=== PATIENT | female | born 2000 | race African-American/Black ===

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

== ENCOUNTER 2019-01-04 09:35 | Day surgery (SDC) | payer BC, OTHER ==
[2019-01-04 09:59] VITALS: BMI 38.7
[2019-01-04] MEDS ORDERED: Iron Sucrose Complex 500 MG in Sodium Chloride 0.9% 250 ML 250 ML IVPB SCH (10:30)
[2019-01-04] MEDS ORDERED: Acetaminophen 500 MG TAB PO SCH (11:00)
[2019-01-04] MEDS ORDERED: Lactated Ringer's 1,000 ML IV SCH (11:45)
== END 2019-01-04 16:00 | disposition home or self-care (01) ==
LOC: L&D/OP 09:35
PROVIDERS: ATTEND Advanced Practice Midwife
DX: O99.019 Anemia complicating pregnancy, unspecified trimester (principal)
CPT/HCPCS: 96361; 96365; 96366; 99283; J1756; J7050

== ENCOUNTER 2019-01-26 15:34 | Day surgery (SDC) | payer BC, OTHER ==
[2019-01-26 16:00] VITALS: BP 126/73; TEMP 98.8; BMI 39.4
[2019-01-26] MEDS ORDERED: hydrALAZINE 20 MG/ML VIAL SLOW IVP PRN (16:37)
--- NOTE | 2019-01-27 08:50 | PRG ---
DATE OF SERVICE: 01/26/2019 PRIMARY OB: Certified nurse head insulation board saw operator, Huong Randhawa. CHIEF COMPLAINT: Abdominal pains. HISTORY OF PRESENT ILLNESS: The patient is a 18-year-old G1, P0 female with an intrauterine at 36 weeks and 6 days, who is presenting to Labor and Delivery with abdominal pain that she has been feeling about every 15 minutes. These uterine contractions have also not been very regular or consistent. The patient reports that she is just tired of being and wanted to see if she was in labor. The patient denies any vaginal bleeding. She is having a mucousy discharge and some diarrhea last couple of days. The patient denies any recent illnesses, fever, cough, headache, chest pain, shortness of breath, significant nausea, vomiting, constipation, any new rashes, hip problems, knee problems, muscle weakness, or burning with urination. Tocometer showing some irritability with contractions about every 2 to 4 minutes. PAST MEDICAL HISTORY: Negative. PAST SURGICAL HISTORY: Tonsillectomy. ALLERGIES: NO KNOWN DRUG ALLERGIES. MEDICATIONS: vitamins. OB LABORATORY DATA: Unavailable at the time of dictation. SOCIAL HISTORY: Denies drug, alcohol, or tobacco use. REVIEW OF SYSTEMS: Per HPI. PHYSICAL EXAMINATION: VITAL SIGNS: Blood pressure 126/73, heart rate of 88, respiratory rate of 18, and temperature 98.8. GENERAL: She appears to be in no acute distress. She is alert and oriented, cooperative, and pleasant to interact with. HEENT: Head is normocephalic and atraumatic. LUNGS: Clear to auscultation bilaterally. HEART: Has a regular rate and rhythm. ABDOMEN: Gravid, soft, nontender. EXTREMITIES: Nontender with 1+ edema, symmetrical and bilateral. CERVICAL: Per nursing staff is closed, thick and high. heart tracing shows a baseline in the 130s with moderate long-term variability, positive 15 x 15 accelerations, no decelerations. Tocometer showing some irritability with contractions about every 2 to 4 minutes. The patient reports the contractions are lasting about 20 to 30 seconds at a time. ASSESSMENT AND PLAN: The patient is a 18-year-old G1, P0 female with an intrauterine at 36 weeks and 6 days, having contractions, but no evidence of labor at this time. Fetus has a category 1 tracing and reactive NST. The patient has been given reassurance and discharged home. She has an appointment with Ms. Huong Randhawa on Thursday, which we have encouraged that she keep. Job ID: [id number]
== END 2019-01-26 16:37 | disposition home or self-care (01) ==
LOC: L&D/OP 15:34
PROVIDERS: ATTEND Obstetrics & Gynecology
DX: O47.03 False labor before 37 completed weeks of gestation, third trimester (principal); Z3A.36 36 weeks gestation of pregnancy
CPT/HCPCS: 99282

== ENCOUNTER 2019-02-05 16:21 | Day surgery (SDC) | payer BC, OTHER ==
[2019-02-05 16:49] VITALS: BP 129/77; TEMP 98.4; BMI 37.8
[2019-02-05] MEDS ORDERED: hydrALAZINE 20 MG/ML VIAL SLOW IVP PRN (16:58)
--- NOTE | 2019-02-05 17:21 | PDOC.FPROB ---
FMR OB H&P: HPI - History of Present Illness Chief Complaint: contractions Indentification: 18 yo G1 @ 38.2 History of Present Illness: 18 yo @ 38.3 presents for painful contractions since yesterday. Pt reports contractions are approx 10-15 minutes apart and are cramping in nature. No fever , chills, NVDC. Denies LOF, bleeding, discharge and reports pos movement. FMR OB H&P: Current - OB Labs Blood type: O RH: positive Antibody Screen: negative HIV: negative RPR: negative HepBsAg: negative Rubella: immune Quad screen: negative Urine drug screen: negative Gonorrhea: negative Chlamydia: negative Pap Smear: TRUCK LOADER 1 hour gtt: 87 GBS: unknown Platelets: 262 FMR OB H&P: History - OB History OB History: Anemia of FMR OB H&P: Medications - Current Home Medications: Medication Instructions Recorded Confirmed Type No122/Iron/Folic Acid 1 tablet PO Q24HR 12/10/18 01/26/19 History [ Multi Tablet] Allergies/Adverse Reactions: Allergies Allergy/AdvReac Type Severity Reaction Status Date / Time No Known Allergies Allergy Verified 01/26/19 16:01 FMR OB H&P: ROS - Review of Systems General: denies: fever/chills, night sweats Eyes: denies: vision changes ENT: denies: nasal congestion Cardiovascular: denies: chest pain, edema Respiratory: denies: cough, shortness of breath Gastrointestinal: denies: abdominal pain, cramping, nausea, vomiting, constipation Genitourinary (Female): reports: contractions. denies: vaginal discharge, vaginal pain, vaginal bleeding, vaginal pressure Neurologic: denies: numbness, syncope, weakness FMR OB H&P: Vital Signs - Maternal Vital signs: Vital Signs - First Documented Temp Pulse Resp BP 98.4 F 100 22 H 129/77 02/05/19 16:46 02/05/19 16:46 02/05/19 16:46 02/05/19 16:46 - Heart Tones Baseline: 130 Variability: moderate Acceleration: present Deceleration: absent Category: category 1 [place] contractions every: None FMR OB H&P: Physical Exam - Physical Exam General: NAD, awake, alert and oriented HEENT: normocephalic and atraumatic, PERRLA, EOMI, MMM, grossly normal vision, grossly normal hearing Neck: trachea midline Heart: RRR, normal S1/S2, no murmurs/rubs/gallops, no edema General: CTAB, no respiratory distress, good air movement, no rales/rhonchi, no wheezing, no retractions Abdomen: soft, gravid, non-tender, bowel sound present Musculoskeletal: FROM in all four extremities Neurological: no focal deficit Skin: good tugor - Pelvic Exam SVE: 1/T/H FMR OB H&P: A/P Disposition: 18 yo G1 @ 38.3 weeks 1) TIUP latent labor - cervix 1 thick and high - no contractions on monitor - fhts baseline 130 pos accels no late or variable dels, reactive strip - will dc to home with return/labor precautions - tylenol prn for pain Discussion: Date/Time: 02/05/191718 This H&P was discussed with Dr. Alfaro who agrees with the above documentation and plan. Addendum - Attending - Attending Attestation Date/Time: 02/05/191947 I personally evaluated the patient and discussed the management with Dr. Monroy. I agree with the History, Examination, Assessment and Plan documented above.
== END 2019-02-05 17:59 | disposition home or self-care (01) ==
LOC: L&D/OP 16:21
PROVIDERS: ATTEND Advanced Practice Midwife
DX: O09.93 Supervision of high risk pregnancy, unspecified, third trimester (principal); O99.013 Anemia complicating pregnancy, third trimester; Z3A.38 38 weeks gestation of pregnancy
CPT/HCPCS: 99282

== ENCOUNTER 2019-02-13 16:45 | Day surgery (SDC) | payer BC, OTHER ==
[2019-02-13 17:43] VITALS: BMI 42.0
[2019-02-13 17:44] VITALS: TEMP 98.9
--- NOTE | 2019-02-13 18:17 | PDOC.LDHP ---
Labor and Delivery H&P Chief complaint: contractions, decreased movement HPI: 18 y/o G1 at 39w3d, patient of Cece Randhawa, presents with decreased movement today and ctx on and off all day. Ctx up to q 3 mins. Denies VB, LOF , or other complaints. ROS neg for HEENT, CV, pulm, GI, , neuro, psych, skin, musculoskeletal, or constitutional symptoms other than mentioned above. OB History Details: First Current complications: none Past Medical History: None Current medications: pre- vitamins Previous surgical history: none Allergies/Adverse Reactions: Allergies Allergy/AdvReac Type Severity Reaction Status Date / Time No Known Allergies Allergy Verified 01/26/19 16:01 - Physical Exam Vital signs reviewed and normal: yes General: NAD, resting Lungs: nonlabored breathing Abdomen: gravid Extremeties: no edema FHT: category 1 (120s, mod variability, + accels, no decels) [place] contractions every: irregular - Vaginal Exam cm dilated: 1 Effacement: 0% Station: -3 - Assessment 18 y/o G1 at 39w3d with no e/o active labor. status reassuring with reactive NST. - Plan -: D/c home with precautions. Advised to keep appointment scheduled for Thursday.
== END 2019-02-13 18:30 | disposition home or self-care (01) ==
LOC: L&D/OP 16:45
PROVIDERS: ATTEND Obstetrics & Gynecology
DX: O36.8130 Decreased fetal movements, third trimester, not applicable or unspecified (principal); O47.1 False labor at or after 37 completed weeks of gestation; Z3A.39 39 weeks gestation of pregnancy
CPT/HCPCS: 99283

== ENCOUNTER 2019-02-14 22:57 | Day surgery (SDC) | payer BC, OTHER ==
[2019-02-14 23:35] VITALS: BP 128/77; TEMP 98.7; BMI 38.5
[2019-02-14] MEDS ORDERED: hydrALAZINE 20 MG/ML VIAL SLOW IVP PRN (23:57)
[2019-02-15 00:22] LABS: Amnisure Test No Membranes Rupture (No Rupture)
[2019-02-15 00:23] LABS: Amnisure Internal Control QC ACCEPTABLE (ACCEPTABLE)
--- NOTE | 2019-02-15 02:32 | SS ---
DATE OF ADMISSION: 02/14/2019 DATE OF DISCHARGE: 02/15/2019 REGULAR PROVIDER: Huong Randhawa, certified nurse-home furnishings sales representative. EVALUATING PHYSICIAN: King Alfaro MD CHIEF COMPLAINT: Contractions at home. HISTORY OF PRESENT ILLNESS: Ms. Alexei Millard is a 18-year-old black, G1, P0 with an estimated date of confinement of 02/17/2019, who presents complaining of regular uterine contractions since 8 o'clock tonight. She states she might be leaking, but she is not sure. She denies vaginal bleeding or decreased movement. The patient was here approximately 24 hours ago with similar complaints and was found to be 1 cm at that time. Her care has been with Huong Randhawa without complications. PAST MEDICAL HISTORY: None. PAST SURGICAL HISTORY: Tonsillectomy. CURRENT MEDICATION: vitamins. ALLERGIES: NO KNOWN ALLERGIES. SOCIAL HISTORY: Denies tobacco, alcohol, or drug use. FAMILY HISTORY: Unremarkable. REVIEW OF SYSTEMS: Denies nausea, vomiting, fever, chills, vaginal bleeding, or decreased movement. PHYSICAL EXAMINATION: VITAL SIGNS: In triage, her vital signs are stable. She is afebrile. GENERAL: She is in no acute distress. ABDOMEN: Soft, nontender, and gravid. PELVIC: Exam by the labor nurse shows her cervix to be 1 cm, minimally effaced with the vertex high. heart rate tracing is stable. There are spontaneous accelerations. Uterine contractions every 3 to 5 minutes, mild to palpation, are noted. AmniSure was obtained and it returns negative. ASSESSMENT: 1. 39-week intrauterine . 2. Prodromal labor, no evidence of active labor at this time. PLAN: The patient was offered to stay on [place] to go home with and she has declined this. Labor precautions were reviewed with her and her mother in detail. She states she has a followup appointment with Huong Randhawa this week. She was sent home in good condition. Job ID: [id number]
== END 2019-02-15 01:03 | disposition home or self-care (01) ==
LOC: L&D/OP 22:57
PROVIDERS: ATTEND Student in an Organized Health Care Education/Training Program
DX: O47.1 False labor at or after 37 completed weeks of gestation (principal); Z3A.39 39 weeks gestation of pregnancy
CPT/HCPCS: 84112

== ENCOUNTER 2019-03-30 09:46 | Outpatient (CLI) | payer BC, OTHER ==
--- NOTE | 2019-03-30 12:07 | ULT ---
LEFT BREAST DIAGNOSTIC ULTRASOUND: Date: 03/30/19 INDICATION: Palpable abnormality in the left breast. COMPARISON: Prior left breast ultrasound dated 01/21/16. FINDINGS: Within the palpable region of interest, there is a 2.2 x 2.0 x 1.4 cm lobulated solid mass in the lef t breast 2 o'clock position 7 cm from the nipple. This corresponds to the mass seen on the prior exam ination in 2016. The lesion measured 2.0 x 1.2 x 1.7 cm on the prior examination. IMPRESSION: Circumscribed hypoechoic mass slightly intervally enlarged from the comparison in 2016. The patient r eportedly has recently undergone and . The patient has also recently been placed on bi rth control medication. Would recommended a follow-up examination in 6 weeks to document stability of fibroadenoma. The patient was counseled on the findings prior to leaving [facility]. POS: [facility]
== END 2019-03-30 09:47 | disposition home or self-care (01) ==
LOC: BICULT 09:46
PROVIDERS: ATTEND Obstetrics & Gynecology
DX: N63.20 Unspecified lump in the left breast, unspecified quadrant (principal)

== ENCOUNTER 2019-04-19 09:59 | Outpatient (CLI) | payer BC, OTHER ==
[2019-04-19 12:19] LABS: BHCG - Serum Negative (NEGATIVE); Pregs Control Background? CLEAR/WHITE (CLR/WHITE); Pregs Control Bar Appear? YES (CONTROL BAR)
== END 2019-04-19 10:00 | disposition home or self-care (01) ==
LOC: LABBT 09:59
PROVIDERS: ATTEND Surgery
DX: Z01.812 Encounter for preprocedural laboratory examination (principal); N63.20 Unspecified lump in the left breast, unspecified quadrant
CPT/HCPCS: 84703

== ENCOUNTER 2019-04-22 08:03 | Day surgery (SDC) | payer BC, OTHER ==
[2019-04-19 10:15] VITALS: BMI 37.0
[2019-04-22] MEDS ORDERED: Lidocaine 2% PF 5 ML VIAL ONE (10:31)
[2019-04-22] MEDS ORDERED: Bupivacaine HCl 0.5%/Epinephrine 1:200,000/PF 30 ml Vial ONE (10:31)
[2019-04-22] MEDS ORDERED: Fentanyl 100 MCG/2 ML VIAL ONE (10:43)
[2019-04-22] MEDS ORDERED: Scopolamine 1.5 mg/72 hour Patch ONE (10:56)
[2019-04-22] MEDS ORDERED: PROPOFOL 200 MG/20 ML VIAL ONE (11:30)
[2019-04-22] MEDS ORDERED: Dexamethasone 20 MG/5 ML VIAL ONE (11:30)
[2019-04-22] MEDS ORDERED: Ketorolac Tromethamine 30 MG/ML VIAL ONE (11:30)
[2019-04-22] MEDS ORDERED: Ondansetron PF 4 MG/2 ML Vial ONE (11:30)
[2019-04-22] MEDS ORDERED: Meperidine HCl/PF 25 MG/ML VIAL ONE (11:38)
--- NOTE | 2019-04-29 14:38 | PDOC.OP ---
Operative Note - Operative Note Operative Note: PROCEDURE: Excision of left breast mass SURGEON: Elysia Riley M.D. 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 Patient had decided to undergo excision last year since it had enlarged slightly but she ended up canceling her surgery. She then became and had a baby. She is not nursing but noticed that the mass was growing larger so she returned to have this addressed. It still looks benign on ultrasound it has grown somewhat. Excision was recommended for diagnostic and symptomatic purposes. PROCEDURE IN DETAIL: After informed consent was obtained and appropriate preoperative and buttocks were administered the patient was taken to the operating room she was placed in supine position and anesthesia was administered. She was prepped and draped in standard sterile fashion and local anesthesia infused the skin and subcutaneous tissues overlying the palpable lateral breast mass. A skin incision was made and dissection carried down to the palpable mass which was excised with a rim of normal breast tissue. This was marked for orientation with a long lateral, short superior, and loop superficial suture. The wound was irrigated and hemostasis obtained using Bovie electrocautery. Additional local anesthesia was infused for postoperative pain control. The wound was again irrigated and hemostasis verified. The subcutaneous tissues were reapproximated with 3-0 Monocryl suture and the skin closed with 4-0 subcuticular Monocryl suture. Dermabond dressings were placed and once this was dry a compression dressing was placed and secured with tape. The patient was extubated and taken to recovery in good condition. Estimated blood loss is minimal. There were no complications. Specimen is left breast mass
== END 2019-04-22 13:25 | disposition home or self-care (01) ==
LOC: SDC 08:03
PROVIDERS: ATTEND Surgery
PROC: 0HBU0ZX Excision of Left Breast, Open Approach, Diagnostic (ICD-10-PCS; principal; 2019-04-22)
DX: D24.2 Benign neoplasm of left breast (principal)
CPT/HCPCS: 88305; J0131; J0670; J1100; J1885; J2001; J2175; J2405; J2704; J3010

== ENCOUNTER 2019-11-26 14:46 | Emergency (ER) | payer BC, OTHER ==
[2019-11-27 11:49] LABS: SARS-CoV-2 MS2 Positive; SARS-CoV-2 N Gene Positive; SARS-CoV-2 S Gene Positive; SARS-CoV-2 orf1ab Positive
== END 2019-11-26 15:56 | disposition home or self-care (01) ==
LOC: ERS 14:46
DX: U07.1 COVID-19 (principal)
CPT/HCPCS: 87635; 99283; U0003

== ENCOUNTER 2019-12-23 16:27 | Emergency (ER) | payer BC, OTHER ==
[2019-12-23 16:57] LABS: #Basophils 0.1 thou/uL (0.0-0.2); #Eosinphils 0.3 thou/uL (0.0-0.7); #Lymphocytes 2.8 thou/uL (1.20-3.40); #Monocytes 0.5 thou/uL (0.11-0.59); #Neutrophils 6.6 thou/uL (1.40-6.50); %Basophils 0.5 % (0.0-1.0); %Eosinophils 2.6 % (0.0-10.0); %Lymphocytes 27.2 % (28.0-48.0); %Monocytes 4.5 % (0.0-4.0); %Neutrophils 65.2 % (31.0-61.0); Hemoglobin 11.6 g/dL (12.0-16.0); Mean Corpuscular HGB CONC 31.2 g/dL (32.0-36.0); Mean Corpuscular Hemoglobin 23.1 pg (25.0-35.0); Mean Corpuscular Volume 74.1 fL (78.0-98.0); Mean Platelet Volume 10.3 fL (7.4-10.4); Platelet Count 304 thou/uL (130-400); RBC Distribution Width 15.9 % (11.5-14.5); Red Blood Cell (RBC) Count 5.04 mill/uL (4.00-5.20); White Blood Cell (WBC) Count 10.1 thou/uL (4.8-10.8)
[2019-12-23 17:25] LABS: ALT (SGPT) 15 U/L (8-55); AST (SGOT) 14 U/L (5-34); Albumin 4.2 g/dL (3.5-5.0); Alkaline Phosphatase 111 U/L (40-100); Anion Gap 11 mmol/L (10-20); BUN (Urea Nitrogen) 6 mg/dL (7.0-18.7); Bilirubin, Total 0.3 mg/dL (0.2-1.2); Calc. Creatinine Clearance 0 mL/min (70-130); Calcium 9.5 mg/dL (7.8-10.44); Carbon Dioxide 26 mmol/L (22-29); Chloride 106 mmol/L (98-107); Estimated GFR-MDRD Greater than 90; Globulin 3.2 g/dL (2.4-3.5); Glucose 102 mg/dL (70-105); Lipase 11 U/L (8-78); Protein, Total 7.4 g/dL (6.0-8.3); Sodium 139 mmol/L (136-145)
== END 2019-12-23 17:33 | disposition left against medical advice (07) ==
LOC: ERS 16:27
DX: Z53.21 Procedure and treatment not carried out due to patient leaving prior to being seen by health care provider (principal)
CPT/HCPCS: 36415; 80053; 83690; 85025

== ENCOUNTER 2020-01-10 10:56 | Emergency (ER) | payer BC, OTHER ==
[2020-01-11 13:13] LABS: SARS-CoV-2 MS2 Positive; SARS-CoV-2 N Gene Negative; SARS-CoV-2 S Gene Negative; SARS-CoV-2 by NAA Not Detected (NotDetected); SARS-CoV-2 orf1ab Negative
== END 2020-01-10 11:16 | disposition home or self-care (01) ==
LOC: ERS 10:56
DX: R09.81 Nasal congestion (principal); R53.83 Other fatigue; R51 Headache; R11.0 Nausea; Z20.828 Contact with and (suspected) exposure to other viral communicable diseases; F32.9 Major depressive disorder, single episode, unspecified
CPT/HCPCS: 87635; 99283; U0003

== ENCOUNTER 2020-02-05 14:33 | Emergency (ER) | payer BC, OTHER ==
[2020-02-05] MEDS ORDERED: Ketorolac Tromethamine 30 MG/ML VIAL ONE (15:32)
--- NOTE | 2020-02-05 15:46 | RAD ---
Exam:4 views left knee HISTORY: Pain and swelling. COMPARISON: None FINDINGS: Preserved joint spaces. No joint effusion. No fracture or malalignment. IMPRESSION: No radiographic abnormality.
== END 2020-02-05 16:26 | disposition home or self-care (01) ==
LOC: ERS 14:33
DX: M25.562 Pain in left knee (principal); F32.9 Major depressive disorder, single episode, unspecified
CPT/HCPCS: 96372; J1885

== ENCOUNTER 2020-02-14 12:32 | Emergency (ER) | payer BC, OTHER | END 2020-02-14 13:50 | disposition home or self-care (01) | LOC: ERS 12:32 | DX: M25.562 Pain in left knee (principal); F32.9 Major depressive disorder, single episode, unspecified | CPT/HCPCS: 99281 ==

== ENCOUNTER 2020-02-15 07:34 | Emergency (ER) | payer BC, OTHER | END 2020-02-15 08:17 | disposition home or self-care (01) | LOC: ERS 07:34 | DX: M25.462 Effusion, left knee (principal) | CPT/HCPCS: 99281 ==

== ENCOUNTER 2020-02-22 10:18 | Emergency (ER) | payer BC, OTHER | END 2020-02-22 11:15 | disposition home or self-care (01) | LOC: ERS 10:18 | DX: M25.562 Pain in left knee (principal); R79.89 Other specified abnormal findings of blood chemistry; F32.9 Major depressive disorder, single episode, unspecified | CPT/HCPCS: 99283 ==

== ENCOUNTER 2020-02-29 07:48 | Emergency (ER) | payer BC, OTHER ==
[2020-02-29] MEDS ORDERED: Ondansetron ODT 4 MG TAB ONE (08:07)
[2020-02-29 16:54] LABS: SARS-CoV-2 MS2 Positive; SARS-CoV-2 N Gene Negative; SARS-CoV-2 S Gene Negative; SARS-CoV-2 by NAA Not Detected (NotDetected); SARS-CoV-2 orf1ab Negative
== END 2020-02-29 09:12 | disposition home or self-care (01) ==
LOC: ERS 07:48
DX: R11.2 Nausea with vomiting, unspecified (principal); Z20.828 Contact with and (suspected) exposure to other viral communicable diseases
CPT/HCPCS: 87635; 99284; Q0162; U0003

== ENCOUNTER 2022-08-11 10:43 | Emergency (ER) | payer OTHER ==
[~2022-08-11 10:43] MED LIST: Iopamidol-370 76% 500 ML 1 ML ONE
[2022-08-11 13:09] LABS: #Basophils 0.1 thou/uL (0.0-0.2); #Eosinphils 0.1 thou/uL (0.0-0.7); #Lymphocytes 2.3 thou/uL (1.20-3.40); #Monocytes 0.3 thou/uL (0.11-0.59); #Neutrophils 2.9 thou/uL (1.40-6.50); %Basophils 1.1 % (0.0-1.0); %Eosinophils 1.5 % (0.0-10.0); %Lymphocytes 40.4 % (21.0-51.0); %Monocytes 5.3 % (0.0-10.0); %Neutrophils 51.7 % (42.0-75.0); Hemoglobin 11.7 g/dL (12.0-16.0); Mean Corpuscular HGB CONC 31.7 g/dL (32.0-36.0); Mean Corpuscular Hemoglobin 25.8 pg (27.0-31.0); Mean Corpuscular Volume 81.5 fl (78.0-98.0); Mean Platelet Volume 10.1 fL (7.4-10.4); Platelet Count 256 10x3/uL (130-400); RBC Distribution Width 15.3 % (11.5-14.5); Red Blood Cell (RBC) Count 4.53 mill/uL (4.20-5.40); White Blood Cell (WBC) Count 5.6 10x3/uL (4.8-10.8)
[2022-08-11 13:17] LABS: Bacteria/HPF None Seen HPF (None Seen); Bilirubin Negative (Negative); Blood, Urine 2+ (Negative); Clarity Clear (Clear); Glucose, Urine (Dipstick) Normal (Negative); Ketone, Urine Negative (Negative); Leukocyte Negative Leu/uL (Negative); Nitrite Negative (Negative); Protein, Urine (Dipstick) Negative (Neg-Trace); RBC/HPF 0-3 HPF (0-3); Specific Gravity, Urine 1.027 (1.002-1.036); Squamous Epithelial 0-3 HPF (0-3); Urobilinogen Normal mg/dL (Less than 2); WBC/HPF 0-3 HPF (0-3)
[2022-08-11 13:17] LABS: Pregnancy Test - Urine (BHCG) Negative (Negative); Pregu Control Background? CLEAR/WHITE (CLR/WHITE); Pregu Control Bar Appear? YES (CONTROL BAR); Specific Gravity 1.027 (1.002-1.036)
[2022-08-11 13:31] LABS: ALT (SGPT) 13 U/L (8-55); AST (SGOT) 15 U/L (5-34); Albumin 4.3 g/dL (3.5-5.0); Alkaline Phosphatase 108 U/L (40-110); Anion Gap 10 mmol/L (10-20); BUN (Urea Nitrogen) 8 mg/dL (7.0-18.7); Bilirubin, Total 0.3 mg/dL (0.2-1.2); Calc. Creatinine Clearance 0 mL/min (70-130); Calcium 9.4 mg/dL (7.8-10.44); Carbon Dioxide 23 mmol/L (22-29); Chloride 106 mmol/L (98-107); Estimated GFR 130; Globulin 3.3 g/dL (2.4-3.5); Glucose 82 mg/dL (70-105); Potassium 4.2 mmol/L (3.5-5.1); Protein, Total 7.6 g/dL (6.0-8.3); Sodium 135 mmol/L (136-145)
== END 2022-08-11 15:00 | disposition home or self-care (01) ==
LOC: ERS 10:43
DX: N83.202 Unspecified ovarian cyst, left side (principal)
CPT/HCPCS: 74177; 80053; 81003; 81015; 81025; 85025; Q9967